=== PATIENT | male | born 1955 | race Caucasian/White ===

== ENCOUNTER 2021-09-22 09:45 | Outpatient (CLI) | payer BC | END 2021-09-22 09:46 | disposition home or self-care (01) | LOC: CSHLAB 09:45 | PROVIDERS: ATTEND Orthopaedic Surgery | DX: Z01.812 Encounter for preprocedural laboratory examination (principal); Z20.822 Contact with and (suspected) exposure to COVID-19 | CPT/HCPCS: 80048; 85027; 85610; 85730; 86850; 86900; 86901; U0003; U0005 ==

== ENCOUNTER 2021-09-27 06:00 | Inpatient (IN) | payer BC ==
[2021-09-22 11:18] LABS: Mean Corpuscular HGB CONC 34.9 g/dL (32.0-36.0); Mean Corpuscular Hemoglobin 31.6 pg (27.0-33.0); Mean Corpuscular Volume 90.5 fl (81.2-95.1); Mean Platelet Volume 8.3 fl (7.4-10.4); Platelet Count 196 10x3/uL (150-450); RBC Distribution Width 14.3 % (11.5-14.5); Red Blood Cell (RBC) Count 5.38 10x6/uL (4.32-5.72); White Blood Cell (WBC) Count 7.5 10x3/uL (3.5-10.5)
[2021-09-22 11:32] LABS: INR-International Normal Ratio 0.9; Prothrombin Time 10.3 sec (9.5-12.1)
[2021-09-22 11:35] LABS: Anion Gap 13 mmol/L (10-20); BUN (Urea Nitrogen) 13 mg/dL (8.4-25.7); Calc. Creatinine Clearance 0 mL/min (70-130); Carbon Dioxide 25 mmol/L (23-31); Chloride 104 mmol/L (98-107); Glucose 91 mg/dL (80-115); Potassium 4.3 mmol/L (3.5-5.1); Sodium 138 mmol/L (136-145)
[2021-09-23 14:11] LABS: SARS-CoV-2 PCR by NAA Not Detected (NotDetected)
[2021-09-26 10:29] VITALS: BMI 31.0
[2021-09-27] MEDS ORDERED: Bupivacaine 0.25% HCL 30 ML VIAL ONE (06:26)
[2021-09-27] MEDS ORDERED: EPINEPHrine 1 MG/ML AMP ONE (06:27)
[2021-09-27] MEDS ORDERED: Famotidine/PF 20 mg/2ml Vial ONE ×2 (06:48→07:11)
[2021-09-27] MEDS ORDERED: PROPOFOL 20 ML ONE (07:08)
[2021-09-27] MEDS ORDERED: Rocuronium Bromide 10 MG/ML (10ML VIAL) ONE (07:09)
[2021-09-27] MEDS ORDERED: Lidocaine 2% PF 5 ML VIAL ONE (07:09)
[2021-09-27] MEDS ORDERED: Metoclopramide HCl 10 MG/2 ML VIAL ONE (07:09)
[2021-09-27] MEDS ORDERED: Fentanyl 100 MCG/2 ML VIAL ONE ×3 (07:09→10:34)
[2021-09-27] MEDS ORDERED: Ondansetron PF 4 MG/2 ML Vial ONE (07:09)
[2021-09-27] MEDS ORDERED: Dexamethasone 4 mg/ml Vial ONE (07:09)
[2021-09-27] MEDS ORDERED: SUGAMMADEX SODIUM 200 MG/2 ML VIAL ONE (07:10)
[2021-09-27] MEDS ORDERED: PHENYLEPHRINE-NS 100 MCG/ML 10 ML SYRINGE ONE ×2 (07:54→09:38)
[2021-09-27] MEDS ORDERED: ePHEDrine Sulfate 50 MG/10 ML VIAL ONE (08:10)
[2021-09-27] MEDS ORDERED: Ketorolac Tromethamine 30 MG/ML VIAL ONE (09:36)
[2021-09-27] MEDS ORDERED: HYDROmorphone 0.5 MG/0.5 ML SYRINGE ONE (12:08)
[2021-09-27] MEDS ORDERED: Morphine 4 MG/ML VIAL SLOW IVP PRN (12:40)
[2021-09-27] MEDS ORDERED: traMADol HCl 50 MG TAB PO PRN (12:40)
[2021-09-27] MEDS ORDERED: Communication Order-Pharmacy FS SCH (12:45)
[2021-09-27] MEDS ORDERED: TETANUS AND DIPHTHERIA TOX/PF 0.5 ML DISP.SYRIN IM SCH (12:45)
[2021-09-27] MEDS: HYDROcodone/Acetaminophen 10/325 mg Tablet PO PRN ×2 (18:14→22:57)
[2021-09-27] MEDS: CEFAZOLIN 2 GM in Premix Bag 1 BAG IVPB SCH (18:15)
[2021-09-27] MEDS ORDERED: Gabapentin 300 MG CAP PO SCH (21:00)
[2021-09-27] MEDS: Aspirin 81 mg Enteric Coated Tablet PO SCH (21:31)
[2021-09-28] MEDS: Azelastine 137 MCG/Spray 30 ML NS SCH ×2 (00:05→08:19)
[2021-09-28] MEDS: CEFAZOLIN 2 GM in Premix Bag 1 BAG IVPB SCH ×2 (00:21→08:18)
[2021-09-28] MEDS: Aspirin 81 mg Enteric Coated Tablet PO SCH (08:18)
[2021-09-28] MEDS ORDERED: Fluticasone Propionate Nasal Spray 16 gm Bottle NASAL SCH (09:00)
[2021-09-28 09:22] VITALS: BP 119/72; TEMP 97.6
[2021-09-28] MEDS: HYDROcodone/Acetaminophen 10/325 mg Tablet PO PRN (11:14)
== END 2021-09-28 12:48 | disposition home or self-care (01) | DRG 455 ==
LOC: CSHSDC 06:00 → CSHTELE 15:34
PROVIDERS: ADMIT Orthopaedic Surgery; ATTEND Orthopaedic Surgery
PROC: 0SG30AJ Fusion of Lumbosacral Joint with Interbody Fusion Device, Posterior Approach, Anterior Column, Open Approach (ICD-10-PCS; principal; 2021-09-27)
PROC: 01NB0ZZ Release Lumbar Nerve, Open Approach (ICD-10-PCS; 2021-09-27)
PROC: 01NR0ZZ Release Sacral Nerve, Open Approach (ICD-10-PCS; 2021-09-27)
PROC: 0SG0071 Fusion of Lumbar Vertebral Joint with Autologous Tissue Substitute, Posterior Approach, Posterior Column, Open Approach (ICD-10-PCS; 2021-09-27)
DX: M48.061 Spinal stenosis, lumbar region without neurogenic claudication (principal); M41.86 Other forms of scoliosis, lumbar region; F41.9 Anxiety disorder, unspecified; Z20.822 Contact with and (suspected) exposure to COVID-19; M51.17 Intervertebral disc disorders with radiculopathy, lumbosacral region
CPT/HCPCS: 72110; 76000; 80048; 85027; 85610; 85730; 86850; 86900; 86901; 94760; C1713; C1763; C1889; J0171; J0690; J1100; J1170; J1885; J2001; J2270; J2405; J2704; J2765; J3010; S0020; S0028; U0003; U0005